=== PATIENT | female | born 1960 | race Two or more races ===

== ENCOUNTER 2017-07-28 02:14 | Inpatient (IN) | payer MEDICARE, OTHER ==
[~2017-07-28] VITALS: Ht 167.6 cm; Wt 64.9 kg
--- NOTE | 2017-07-28 02:50 | NUR ---
TO BED 3 A 57 YO FEMALE HERE FOR PSYCH EVAL; PATIENT REPORTS, "WANNA KILL MYSELF BUT DONT THINK I CAN DO THAT." DENIES PLAN, DENIES HI. VSS. NONDIAPHORETIC. NAD NOTED. SAFETY AND COMFORT MEASURES OBSERVED. ONGOING MONITORING.
--- NOTE | 2017-07-28 03:00 | NUR ---
URINE COLLECTED VIA CLEAN CATCH, CALLED LAB FOR POWER REGULATOR.
--- NOTE | 2017-07-28 03:15 | NUR ---
warp knitter helper at bedside to draw blood.
[2017-07-28 03:25] LABS: BASOPHILS % (AUTO) 0.6 % (0.0-2.0); EOSINOPHILS % (AUTO) 0.1 % (0.0-6.0); HEMATOCRIT 41 % (33-45); HEMOGLOBIN 13.6 g/dL (11.5-14.8); LYMPHOCYTES # (AUTO) 1.9 /CMM (0.8-4.8); MEAN CORPUSCULAR HEMOGLOBIN 29 PG (26.0-33.0); MEAN CORPUSCULAR HGB CONC 33 g/dl (31.0-36.0); MEAN CORPUSCULAR VOLUME 87 fL (82-100); MONOCYTES # (AUTO) 0.5 /CMM (0.1-1.30); MONOCYTES % (AUTO) 6.3 % (2.0-12.0); NEUTROPHILS # (AUTO) 6.2 /CMM (1.8-8.9); PLATELET COUNT (AUTO) 160 /CMM (150-450); RDW COEFFICIENT OF VARIATION 12.9 (11.5-15.0); RED BLOOD CELL COUNT(AUTO) 4.71 MIL/uL (4.0-5.2); WHITE BLOOD COUNT (AUTO) 8.7 K/uL (4.3-11.0)
[2017-07-28 03:29] LABS: APPEARANCE,URINE SL CLOUDY (CLEAR); BILIRUBIN,URINE NEGATIVE (NEGATIVE); BLOOD, URINE NEGATIVE Ery/uL (NEGATIVE); COLOR,URINE YELLOW (YELLOW); KETONES,URINE TRACE (NEGATIVE); LEUKOCYTE ESTERASE ,URINE NEGATIVE (NEGATIVE); NITRITE, URINE NEGATIVE (NEGATIVE); PH,URINE 5.5 (5.0-8.0); PROTEIN,URINE TRACE mg/dl (NEGATIVE); UGLUCOSE NEGATIVE (NEGATIVE); UROBILINOGEN,URINE 0.2 EU/dL (0.2)
[2017-07-28 03:51] LABS: BACTERIA,URINE None seen /HPF (None Seen); MUCUS,URINE Few /LPF (None Seen); RBC,URINE 0-2 /HPF (0-2); SQUAMOUS EPITHELIAL CELL,UR Moderate /HPF (None Seen); WBC,URINE 0-2 /HPF (0-3)
[2017-07-28 03:52] LABS: CARBON DIOXIDE 27 mmol/L (21-32); CHLORIDE 105 mmol/L (98-107); CREATININE 0.9 mg/dL (0.6-1.3); GLUCOSE 102 mg/dL (74-106); POTASSIUM 3.9 mmol/L (3.5-5.1); SODIUM SERUM 143 mmol/L (136-145); UREA NITROGEN, BLOOD 15 mg/dL (7-18)
[2017-07-28 03:58] LABS: ALANINE AMINOTRANSFERASE 10 U/L (12-78); ALBUMIN 4.1 g/dL (3.4-5.0); ALKALINE PHOSPHATASE 75 U/L (46-116); ASPARTATE AMINOTRANSFERASE 14 U/L (15-37); BILIRUBIN,DIRECT 0.1 mg/dL (0.0-0.2); BILIRUBIN,TOTAL 0.6 mg/dL (0.2-1.0); TOTAL PROTEIN, SERUM 7.7 g/dL (6.4-8.2)
[2017-07-28 04:00] LABS: ACETAMINOPHEN 0 ug/ml (10-30); ALCOHOL, BLOOD < 3 mg/dL (0-0); SALICYLATE 0.6 mg/dL (2.8-20.0)
--- NOTE | 2017-07-28 05:34 | NUR ---
Patient in bed, nad noted. awake and responsive.
--- NOTE | 2017-07-28 08:01 | NUR ---
CLINICIAN CALLED PHIL [phone]
--- NOTE | 2017-07-28 09:11 | NUR ---
PHIL RN AT BEDSIDE FOR EVAL.
--- NOTE | 2017-07-28 09:41 | NUR ---
REPORT GIVEN TO CATHY CASTORENA FOR AYDEN
--- NOTE | 2017-07-28 10:00 | NUR ---
MANUFACTURING WEAVER NOTE: ADMITTED 57 Y/O FEMALE ON 5150 HOLD FOR DTS AND GD ,PER 5150 HOLD PATIENT HAS LOOSE THOUGHT PROCESS ,DELUSIONAL AND STATES SHE CALLED THE POLICE BECAUSE "SOME ONE BREAKING IN,PATIENT STATED "I WANT TO KILL MY SELF BUT I DON'T THINK I CAN DO THAT ".On 1:1 PATIENT STATED "I AM DEPRESSED AND DON'T KNOW WHAT TO DO".FLAT AFFECT ,EASILY AGITATED ,UNSTEADY GAIT ,MUMBLING TO SELF AND NOT FOLLOWING DIRECTIONS ,HX OF [place]ARK[place] SKIN CLEAR,PATIENT HAS 2 PACEMAKER ON RIGHT AND LEFT CHEST ,PATIENT'S RIGHT HAND BOOK GIVEN AND EXPLAINED TO PATIENT ABLE TO VERBALIZE UNDERSTANDING ,CONTRA BAND CHECKED IN BY STAFF ,PATIENT SEEN BY WITH NEW ORDERS , CALLED FOR ADMISSION ORDERS ALL ORDERS CARRIED OUT.START PATIENT ON Q15 MINUTES SAFETY CHECK .
[2017-07-28] MEDS ORDERED: ESTR0.6261 PO (11:41)
[2017-07-28] MEDS ORDERED: CITA20TA11 PO (11:41)
[2017-07-28] MEDS ORDERED: CARB1TAB39 PO ×3 (11:41)
[2017-07-28] MEDS ORDERED: CARB1TAB40 PO (11:41)
[2017-07-28] MEDS ORDERED: PROG100C3 PO (11:41)
[2017-07-28 16:12] VITALS: BP 109/57
[2017-07-28 20:12] VITALS: BP 138/75
--- NOTE | 2017-07-29 06:45 | NUR ---
RN GPS NOTES PATIENT AWAKE AT THIS TIME , NO ACUTE DISTRESS NOTED . ALL NEEDS ATTENDED ANTICIPATED . DENIES SI/HI AT THIS TIME , WILL ENDORSE TO NEXT SHIFT FOR CONTINUITY CARE
[2017-07-29 06:55] LABS: ALBUMIN 3.8 g/dL (3.4-5.0); BILIRUBIN,TOTAL 0.8 mg/dL (0.2-1.0); CREATININE 0.8 mg/dL (0.6-1.3); TOTAL PROTEIN, SERUM 7.4 g/dL (6.4-8.2)
[2017-07-29 08:00] VITALS: BP 143/87
--- NOTE | 2017-07-29 15:12 | NUR ---
Initial Discharge Plan: Patient lives alone in an apartment at [address], [place] [address]; [phone] and states that she wants to go back to living alone. Patient may need placement in a facility. Patient seems unable to manage her care. SW may need to file an APS report. SW will follow up and will help form a safe and proper discharge for the patient. The patient has no family to notify.
[2017-07-29 16:00] VITALS: BP 114/64
[2017-07-29 20:00] VITALS: BP 125/55
[2017-07-30 08:25] VITALS: BP 118/76
--- NOTE | 2017-07-30 10:08 | NUR ---
Pt's sister, Malick Harper, called CHRISTINA. Malick stated that she lives in [facility] and is therefore unable to actively participate in pt's care. Malick stated that, due to the time difference, the best way to reach her is via e-mail; [email or web address]. She provided a telephone number just in case; [phone]. Malick stated that pt has a friend that lives in [place], Kim Nuñezo; [phone]. Malick confirmed that pt lives on her own. Malick expressed concerns about pt's living situation and stated that she would like pt placed in an assisted living facility. Malick stated that pt receives SSI, about $1200/month and that Malick also helps pay her rent. Malick asked CHRISTINA for updates. CHRISTINA will follow up.
[2017-07-30 16:00] VITALS: BP 107/67
[2017-07-30 20:00] VITALS: BP 114/77
[2017-07-31 08:00] VITALS: BP 117/74
[2017-07-31 16:00] VITALS: BP 99/55
[2017-07-31 16:05] VITALS: BP 99/50
[2017-07-31 20:00] VITALS: BP 104/65
[2017-08-01 08:00] VITALS: BP 105/70
[2017-08-01 16:00] VITALS: BP 91/50
--- NOTE | 2017-08-01 17:00 | NUR ---
[id number]: INFORMED PT IF FAMILY CAN BRING PROMETRIUM AND ESTRATAB FROM HOME BECAUSE NOT AVAILABLE AT PHARMACY. PT SAID SHE WILL TRY TO ASK ONE OF HER FAMILY MEMBER TO BRING THESE MEDICATIONS.
--- NOTE | 2017-08-01 18:39 | NUR ---
[id number]: GAVE MILK OF MAGNESIA 30 ML PO DUE TO CONSTIPATION UPON PT REQUEST AND WILL CONTINUE TO MONITOR FOR EFFECTIVENESS OF MEDICATION
[2017-08-01 20:17] VITALS: BP 101/67
[2017-08-02 07:54] VITALS: BP 137/89
[2017-08-02 15:45] VITALS: BP 118/58
[2017-08-02 19:39] VITALS: BP 134/75
[2017-08-03 08:40] VITALS: BP 119/69
--- NOTE | 2017-08-03 10:42 | NUR ---
CHRISTINA contacted Nuha from [facility], and faxed over consultation, History and physical, face sheet, medication for potential placement. Evens from [facility] came in to assess the patient. Evens stated that the pt looks good, but he needs to run it by his director. CHRISTINA spoke with pt and pt seemed agreeable with being placed in a facility.
--- NOTE | 2017-08-03 14:10 | NUR ---
[id number]: NOTIFIED DR. KRAMER ABOUT FAMILY NOT BEING ABLE TO BRING PROMETRIUM 100 MG DAILY AND ESTRATAB 0.[address] KRAMER WANTS MEDICATION TO BE PLACED ON HOLD UNTIL FAMILY CAN BRING THE MEDICATION. NOTIFIED PHARMACY.
--- NOTE | 2017-08-03 15:12 | NUR ---
CHRISTINA consulted with psychiatrist, Dr. Blackman who stated that he is considering an assisted living facility for the patient. CHRISTINA consulted with Dwight [corrections caseworker] who will assist in safe and proper placement. CHRISTINA sent correspondence to pt's sister, Malick Azevedo in [facility], regarding an assisted living facility and will wait to hear back. Patient seems cautiously agreeable with the placement.
[2017-08-03 16:00] VITALS: BP 117/65
[2017-08-03 20:06] VITALS: BP 125/75
--- NOTE | 2017-08-03 20:23 | NUR ---
GPS RN NOTES: PATIENT IN THE ROOM AWAKE, IN NO APPARENT DISTRESS THIS TIME OF ASSESSMENT. PATIENT COMPLAINED OF CONSTIPATION. AND REQUESTED FOR DULCOLAX [address] MARIA ANTONIA VILLALOBOS AND HE CALLED BACK RIGHT AWAY AND GAVE ORDERS FOR THE SAID MEDICATION A ONE TIME DOSE.
[2017-08-04 08:00] VITALS: BP 129/73
--- NOTE | 2017-08-04 15:47 | NUR ---
CHRISTINA was able to get in contact with pt's sister, Malick Harper [[email or web address]] who lives in [facility]. CHRISTINA updated Malick on pt's status and placement options. Malick stated that she does not intend on paying pt's rent and so returning home will not be an option for pt. Malick stated that she understood the situation with the board and cares / assisted living. Malick stated that everyone has to be reasonable and while it would be great to send pt to an extremely nice assisted living, it is not financially feasible. Malick stated that she will be willing to pay up to $1000 for the assisted living and that it needs to stay in that financial range. Malick thanked CHRISTINA for the work done with pt's case. Malick stated that she will be fine with pt going to a decent board and care as long as she can get the help that she needs.
[2017-08-04 16:00] VITALS: BP 109/80
[2017-08-04 20:18] VITALS: BP 109/52
--- NOTE | 2017-08-05 07:05 | NUR ---
GPS RN NOTE: RECEIVED PT AWAKE IN BED, A&OX3, DEPRESSED MOOD WITH FLAT AFFECT. RESPIRATIONS EVEN AND UNLABORED WITH NO SOB NOTED. DENIES SI/HI AT THIS TIME. DENIES PAIN. WILL CONT TO MONITOR FOR SAFETY AND BEHAVIOR.
[2017-08-05 08:00] VITALS: BP 116/73
--- NOTE | 2017-08-05 10:35 | NUR ---
GPS RN NOTE: PT C/O CONSTIPATION. DULCOLAX 5MG TAB PO PRN FOR CONSTIPATION GIVEN ORDERED. WILL CONT TO MONITOR.
[2017-08-05 16:00] VITALS: BP 104/69
--- NOTE | 2017-08-05 16:04 | NUR ---
CHRISTINA, with Dwight's help, was able to locate a board and care within pt's [place] range in [facility] [address] [place] [address]. CHRISTINA sent word to pt's sister [[email or web address]] informing her of the update. CHRISTINA also spoke with pt who seemed more open to the idea. CHRISTINA will follow up with board and care and with pt's sister.
--- NOTE | 2017-08-05 19:00 | NUR ---
GPS RN NOTE: NO ACUTE CHANGES DURING SHIFT. ORDERS CARRIED OUT. WILL ENDORSE TO PLACEMENT SPECIALIST NURSE FOR AYDEN.
[2017-08-05 20:00] VITALS: BP 100/65
[2017-08-06 08:00] VITALS: BP_SYST 109; BP_SYST 120; BP_DIAS 72
--- NOTE | 2017-08-06 13:06 | NUR ---
CHRISTINA called Charmaine, an learning administrator at [address] at [phone] and spoke with her. CHRISTINA confirmed bed availability for pt and also confirmed that the davidson was $1000/month. CHRISTINA will follow up. CHRISTINA also forwarded Charmaine's contact information to pt's sister, Malick, at [email or web address]. CHRISTINA was able to obtain Home health information for the board and care as well: [facility], phone number [phone], . CHRISTINA will fax over all required documents when pt is ready for discharge.
[2017-08-06 16:00] VITALS: BP 100/63
[2017-08-06 20:00] VITALS: BP 112/71
[2017-08-07 08:00] VITALS: BP 109/69
[2017-08-07 16:21] VITALS: BP 95/54
[2017-08-07 20:00] VITALS: BP 110/67
--- NOTE | 2017-08-08 00:33 | NUR ---
Pt has been catatonic, with flat affect, guarded, suspicious, quite disorganized, unkempt, & taking po meds with minimal promptings.
[2017-08-08 08:00] VITALS: BP 110/69
[2017-08-08 16:00] VITALS: BP 100/59
[2017-08-08 19:39] VITALS: BP 106/69
--- NOTE | 2017-08-09 10:08 | NUR ---
CHRISTINA called Charmaine, an fleet administrator at [address] at [phone] and informed her that the patient will be discharged today via taxi. Charmaine stated that it was fine. CHRISTINA then asked Charmaine what the name of the on-site psychiatrist is. Charmaine said that she could not recall the name of the psychiatrist and will call the SW back once she has checked the records. CHRISTINA also contacted pt's friend Vielka at [phone] and informed her that pt will be discharged today. CHRISTINA also sent word to pt's sister, Malick at [email or web address]. CHRISTINA arranged transportation for pt and will provide referrals for a psychiatrist just in case Charmaine is unable to contact CHRISTINA today with the psychiatrist's name before patient is discharged. In that case, CHRISTINA will follow up with facility after discharge to obtain psychiatrist's information.
--- NOTE | 2017-08-09 11:30 | NUR ---
[id number]: SPOKE TO JEN FROM [facility] AND [facility] AND JEN SAID TO GIVE PRESCRIPTIONS TO PT BECAUSE THEY WILL BRING TO THEIR PHARMACY.
--- NOTE | 2017-08-09 11:57 | NUR ---
CHRISTINA faxed over home health packet [med list, history and physical, PT assessment, consultation, face sheet, physician's order for home health] to [facility], phone number [phone], .
--- NOTE | 2017-08-09 12:41 | NUR ---
Patient will be discharged to a [facility]: [facility] [address] [place], [place] at [phone] via transportation arranged by [facility] by 2pm. The patient will be picked up and transported by Sana, an employee of the [facility] via a private vehicle. Patients sister [[email or web address]] and friend Vielka [[phone]] are aware of and approve the discharge plan. CHRISTINA faxed over home health packet to [facility] . CHRISTINA also spoke with Jessica from [facility] [phone], who stated that they received the packet and that the patient is eligible for services. Jessica stated that they will follow up with the patient tomorrow, 08/10/17, morning by sending a doctor to assess her. Patient will follow up with her neurologist for Parkinsons, Dr. Zunilda Martínez [address], [place], [place] [id number] [phone] on August 23 at 1pm. Patient does not have a psychiatrist but was given referrals to [facility] [facility] as well as the [facility] [address] [place] [id number] [facility] . [facility] has a [facility] that visit residents. The automotive warranty administrator of the [facility], Charmaine, was unable to provide information for the psychiatrist, but stated that she will follow up with CHRISTINA. Once CHRISTINA has that information, CHRISTINA will work to get in touch with the psychiatrist. Patient is not a smoker and has no history or current drug / alcohol use.
--- NOTE | 2017-08-09 13:50 | NUR ---
[id number]: PT IS 57 YEARS OLD FEMALE DISCHARGE TO [facility] AT [address] [place], [place]. AT [phone] IN STABLE CONDITION. COMPLIANT WITH MEDICATIONS, COOPERATIVE WITH TREATMENT PLANS. PT DENIES SI/HI AND INSTRUCTED TO GO TO THE CLOSEST ER IF DEVELOPING SI/HI. BEHAVIOR IMPROVED, PSYCHIATRIC TX PLANS MET, MEDICAL TX PLANS DEFERRED FOR CONTINUAL MONITORING. EDUCATED PT ABOUT AFTER CARE PLAN AND COPY PROVIDED. RETURNED PERSONAL BELONGINGS TO PT. MEDICATION RECONCILED WITH DR. BUSH AND DR. SCHWARTZ. REPORT GIVEN TO JEN AT [facility] AND [facility] FOR CONTINUITY OF CARE. PT SIGNED ALL DISCHARGE PAPERWORK. SKIN ASSESSMENT DONE. PT LEFT THE UNI PICKED BY BOARD AND CARE SOAP TENDER NAMED PENELOPE MAGANA. Addendum: 08/09/17 at 1616 by RICHARD CUMMINS RN WRONG ENTRY TIME CORRECT ENTRY TIME IS 1558
--- NOTE | 2017-08-09 14:11 | NUR ---
CHRISTINA received an email from pt's sister stating that she was confused about the rent at the board and care her sister is being discharged to. CHRISTINA emailed back asking what the question was. CHRISTINA also called Charmaine the sr. unix system administrator of the board and care at [phone] and left a voicemail asking for Charmaine to call CHRISTINA back.
--- NOTE | 2017-08-09 14:18 | NUR ---
Pt's sister, Malick, emailed social services specialist back and stated that she was able to clear things up with Charmaine, the town administrator of [facility] board and care, [phone]. Discharge will proceed as planned.
[2017-08-09 16:00] VITALS: BP 103/72
== END 2017-08-09 15:50 | disposition home or self-care (01) | DRG 885 ==
LOC: ER 02:16 → GPS 10:05
PROVIDERS: ADMIT Psychiatry & Neurology Psychiatry; ATTEND Psychiatry & Neurology Psychiatry
DX: F33.3 Major depressive disorder, recurrent, severe with psychotic symptoms (principal); F02.80 Dementia in other diseases classified elsewhere, unspecified severity, without behavioral disturbance, psychotic disturbance, mood disturbance, and anxiety; G93.40 Encephalopathy, unspecified; G20 Parkinson's disease; R45.851 Suicidal ideations; Z73.6 Limitation of activities due to disability; Z79.899 Other long term (current) drug therapy; E78.5 Hyperlipidemia, unspecified; I10 Essential (primary) hypertension
CPT/HCPCS: 36415; 70450-TC; 80048-TC; 80053-TC; 80061-TC; 80076-TC; 80305; 81000-TC; 84443-TC; 85025-TC; 87081-TC; A4606; G0480; Z7610